=== PATIENT | female | born 1995 | race Caucasian/White ===

== ENCOUNTER 2022-04-27 16:19 | Emergency (ER) | payer MEDICAID, OTHER ==
[~2022-04-27 16:19] MED LIST: Iopamidol 370 76% 100 ML VIAL ONE
[2022-04-27 16:40] LABS: #Lymphocytes 0.3 thou/uL (1.20-3.40); #Monocytes 0.4 thou/uL (0.11-0.59); #Neutrophils 14.2 thou/uL (1.40-6.50); %Basophils 0.2 % (0.0-1.0); %Eosinophils 0.1 % (0.0-10.0); %Lymphocytes 2.1 % (21.0-51.0); %Monocytes 2.7 % (0.0-10.0); %Neutrophils 94.8 % (42.0-75.0); Mean Corpuscular HGB CONC 33.4 g/dL (32.0-36.0); Mean Corpuscular Hemoglobin 31.8 pg (27.0-31.0); Mean Corpuscular Volume 95.3 fL (78.0-98.0); Mean Platelet Volume 6.8 fL (7.4-10.4); Platelet Count 280 thou/uL (130-400); RBC Distribution Width 11.2 % (11.5-14.5); Red Blood Cell (RBC) Count 5.03 mill/uL (4.20-5.40)
[2022-04-27 16:53] LABS: BHCG - Serum Negative (NEGATIVE); Pregs Control Background? CLEAR/WHITE (CLR/WHITE); Pregs Control Bar Appear? YES (CONTROL BAR)
[2022-04-27 17:02] LABS: ALT (SGPT) 92 U/L (8-55); AST (SGOT) 113 U/L (5-34); Albumin 4.8 g/dL (3.5-5.0); Alkaline Phosphatase 49 U/L (40-110); Anion Gap 21 mmol/L (10-20); BUN (Urea Nitrogen) 13 mg/dL (7.0-18.7); Bilirubin, Total 1.2 mg/dL (0.2-1.2); Calc. Creatinine Clearance 0 mL/min (70-130); Calcium 8.9 mg/dL (7.8-10.44); Carbon Dioxide 22 mmol/L (22-29); Chloride 95 mmol/L (98-107); Estimated GFR 78; Globulin 3.7 g/dL (2.4-3.5); Glucose 134 mg/dL (70-105); Lipase 12 U/L (8-78); Potassium 4.2 mmol/L (3.5-5.1); Protein, Total 8.5 g/dL (6.0-8.3); Sodium 134 mmol/L (136-145)
[2022-04-27] MEDS ORDERED: Ondansetron PF 4 MG/2 ML Vial ONE ×2 (17:45→20:39)
[2022-04-27] MEDS ORDERED: Promethazine HCl 12.5 MG in Sodium Chloride 0.9% 50 ML IVPB SCH (18:15)
[2022-04-27] MEDS ORDERED: Ibuprofen 200 MG TAB ONE (19:11)
[2022-04-27] MEDS ORDERED: Acetaminophen 500 MG TAB ONE (19:11)
== END 2022-04-27 20:43 | disposition home or self-care (01) ==
LOC: ERS 16:19
DX: R11.2 Nausea with vomiting, unspecified (principal)
CPT/HCPCS: 36415; 74177; 80053; 83690; 84703; 85025; 96374; 96375; 96376; J2405; J2550; Q9967